=== PATIENT | female | born 1995 | race Caucasian/White ===

== ENCOUNTER 2019-08-21 17:48 | Emergency (ER) | payer OTHER, SELFPAY ==
[2019-08-21 18:03] VITALS: BP 115/67; PULSE 87; RESP 18; TEMP 37.1; O2SAT 98
--- NOTE | 2019-08-21 18:08 | ED.BACK ---
HPI - Back Pain/Injury General Chief Complaint: Back Pain/Injury Stated Complaint: lower back pain Time Seen by Provider: 08/21/19 18:00 Source: patient Mode of arrival: ambulatory Limitations: no limitations History of Present Illness HPI Narrative: Shannon Harris is a 24 yo female with no PMH who comes to express care after falling down half flight of stairs yesterday. Pain in lower back and thoracic area Related Data Home Medications Medication Instructions Recorded Confirmed dextroamphetamine-amphetamine 08/21/19 Allergies Allergy/AdvReac Type Severity Reaction Status Date / Time bupropion Allergy Severe Swelling Verified 04/10/18 09:23 amoxicillin Allergy Unknown Unverified 04/10/18 09:23 Review of Systems Review of Systems: Narrative: CONSTITUTIONAL: Denies fever, chills, sweats. EYES: Denies visual changes, redness, discharge. ENT: Denies rhinorrhea, congestion, sore throat, otalgia. CARDIOVASCULAR: Denies chest pain, palpitations, edema. RESPIRATORY: Denies dyspnea, wheezing, cough GASTROINTESTINAL: Denies abdominal pain, nausea, vomiting, diarrhea. GENITOURINARY: Denies dysuria, hematuria, abnormal discharge SKIN: Denies rash or itching. NEUROLOGIC: Denies numbness, or focal weakness. PSYCHIATRIC: Denies anxiety or depression. Lower and mid-back pain after fall PMFSH Family History Family History (Updated 08/21/19 @ 18:18 by Cande Rice CNP) Other High blood cholesterol Hypertension Social History Social History (Updated 08/21/19 @ 18:18 by Cande Rice CNP) Smoking status: Never smoker Alcohol intake: current Comments At time of signature, I agree with nursing past medical, surgical, social and family history. There is no relevant family history pertinent to the presenting complaint. Exam Narrative: Exam Narrative: GENERAL: This is a well-nourished, well-developed patient, in mild distress. HEAD: normocephalic, atraumatic. EYES: Sclera clear/white. Vision is grossly intact. EARS: External ears normal, Hearing grossly intact. NOSE: External nose normal without nasal discharge, nares without redness, no rhinorrhea. THROAT: Mucous membranes moist, NECK: Neck supple, CARDIOVASCULAR: Regular rate and rhythm without murmurs, gallops, or rubs. RESPIRATORY: Clear to auscultation. Breath sounds equal bilaterally. No wheezes, rales, or rhonchi. GASTROINTESTINAL: Abdomen soft, SKIN: warm, intact with no suspicious lesions or rash, good texture and turgor. NEURO: awake, alert, and oriented to person, place and time. There were no obvious focal neurologic abnormalities. Steady gait EXTREMITIES: Normal range of motion. BACK: tender without deformity, pain in lumbar and lower thoracic area- no loss of bladder or bowel control Course Course Emergency Course: Xrays initially ordered - pt tearful about possible cost- agreed to give meds and have her follow up if pain continues Vital Signs Vital signs: Vital Signs Temperature 98.8 F 08/21/19 18:03 Pulse Rate 87 08/21/19 18:03 Respiratory Rate 18 08/21/19 18:03 Blood Pressure 115/67 08/21/19 18:03 Pulse Oximetry 98 08/21/19 18:03 Temperature 98.8 F 08/21/19 18:03 Pulse Rate 87 08/21/19 18:03 Respiratory Rate 18 08/21/19 18:03 Blood Pressure 115/67 08/21/19 18:03 Pulse Oximetry 98 08/21/19 18:03 MDM - Back Pain/Injury Differential Diagnosis Differential diagnosis: Likely lumbar radiculopathy, sciatica, strain of lumbar region, thoracic back pain and other (contusion of back) Discharge Plan Discharge Clinical Impression: Contusion of back Qualifiers: Encounter type: initial encounter Laterality: unspecified laterality Qualified Code(s): S20.229A - Contusion of unspecified back wall of thorax, initial encounter Patient Disposition: Home, Self-Care Condition: Stable Instructions: Back Pain (ED) Prescriptions: New baclofen 10 mg tablet 10 mg PO TID Qty: 30 RF: 0
== END 2019-08-21 18:28 | disposition home or self-care (01) ==
PROVIDERS: Emergency Provider Nurse Practitioner; PCP Nurse Practitioner Family
DX: S20.229A Contusion of unspecified back wall of thorax, initial encounter (principal); W10.9XXA Fall (on) (from) unspecified stairs and steps, initial encounter
CPT/HCPCS: 99213; G0463

== ENCOUNTER → 2020-07-26 08:50 | Outpatient (CLI) | payer BC, SELFPAY ==
--- NOTE | ~2020-07-26 | US_ITS ---
US breast LT complete DATE: 07/26/2020 09:05 INDICATION: Left breast pain TECHNIQUE: Real-time imaging of the complete left breast COMPARISON: None FINDINGS: No suspicious mass, cyst, suspicious shadowing or other significant sonographic finding is noted. IMPRESSION: BI-RADS Category 1: Negative Recommendation: None Reviewed, dictated and finalized at [facility]. Reviewed, dictated and finalized at [facility].
== END ==
PROVIDERS: Visit Provider Nurse Practitioner Obstetrics & Gynecology
DX: N64.4 Mastodynia (principal)
CPT/HCPCS: 76641